=== PATIENT | female | born 1955 | race Caucasian/White ===

== ENCOUNTER → 2017-01-17 | Outpatient (CLI) | payer BC ==
[~2017-01-17] MED LIST: CEPH-368 PO; HYDR2TAB29 PO; IBUP200T64 PO; ONDA4TAB10 PO; PROM25SU34 PO; [UNRECOGNIZED DRUG - OTHER] PO
== END | disposition home or self-care (01) ==
LOC: ROC 14:47
PROVIDERS: ATTEND Radiology Radiation Oncology
DX: C50.911 Malignant neoplasm of unspecified site of right female breast (principal)
CPT/HCPCS: 99213; G0463

== ENCOUNTER → 2017-10-14 | Outpatient (CLI) | payer BC | END | disposition home or self-care (01) | LOC: ROC 10:30 | PROVIDERS: ATTEND Radiology Radiation Oncology | DX: Z02.9 Encounter for administrative examinations, unspecified (principal) ==

== ENCOUNTER → 2017-11-16 | Outpatient (CLI) | payer BC | LOC: ROC 10:23 | PROVIDERS: ATTEND Radiology Radiation Oncology | DX: C50.311 Malignant neoplasm of lower-inner quadrant of right female breast (principal); Z90.11 Acquired absence of right breast and nipple; Z88.0 Allergy status to penicillin; Z17.1 Estrogen receptor negative status [ER-] | CPT/HCPCS: 99212; G0463 ==

== ENCOUNTER 2018-08-03 07:47 | Outpatient (CLI) | payer BC | END 2018-08-03 23:59 | disposition home or self-care (01) | LOC: ROC 07:47 | PROVIDERS: ATTEND Radiology Radiation Oncology | DX: Z08 Encounter for follow-up examination after completed treatment for malignant neoplasm (principal); Z85.3 Personal history of malignant neoplasm of breast | CPT/HCPCS: 99213; G0463 ==

== ENCOUNTER → 2018-08-11 | Outpatient (CLI) | payer BC | END | disposition home or self-care (01) | LOC: CVU 10:41 → EDSTATUS 11:00 | PROVIDERS: ATTEND Internal Medicine Cardiovascular Disease | DX: I08.3 Combined rheumatic disorders of mitral, aortic and tricuspid valves (principal); Z85.3 Personal history of malignant neoplasm of breast | CPT/HCPCS: 93306 ==

== ENCOUNTER → 2020-04-25 | Outpatient (CLI) | payer BC | END | disposition home or self-care (01) | LOC: CVU 09:30 | PROVIDERS: ATTEND Internal Medicine Cardiovascular Disease | DX: I08.3 Combined rheumatic disorders of mitral, aortic and tricuspid valves (principal); I71.2 Thoracic aortic aneurysm, without rupture; Z85.3 Personal history of malignant neoplasm of breast; Z90.10 Acquired absence of unspecified breast and nipple | CPT/HCPCS: 93306 ==